=== PATIENT | female | born 1980 | race Caucasian/White ===

== ENCOUNTER → 2019-02-16 14:47 | Outpatient (CLI) | payer BC | END | disposition home or self-care (01) | LOC: D.US 02-12 15:30 | PROVIDERS: ATTEND Nurse Practitioner Family | DX: E04.1 Nontoxic single thyroid nodule (principal) ==

== ENCOUNTER → 2020-07-10 12:51 | Outpatient (CLI) | payer BC ==
--- NOTE | ~2020-07-10 | EC ---
PATIENT:TONIA MOSER DATE OF SERVICE: 07/10/20 SEX: F MEDICAL RECORD: [id number] DATE OF : [birth year] LOCATION:D[facility] AGE OF PATIENT: 39 ADMISSION DATE: 07/10/20 REFERRING PHYSICIAN: INTERPRETING PHYSICIAN: VALERIE DUVALL MD ECHOCARDIOGRAM REPORT ECHO CHARGES 4 ECHO COMPLETE Date: 07/10/20 CLINICAL DIAGNOSIS: ORTHO HYPOTENSION/ SURGERY CLEARENCE ASSESS EF ECHOCARDIOGRAPHIC MEASUREMENTS (adult normal given) AC root (d.<3.7cm) 2.7 cm LV Septum d (<1.2 cm> 1.1 cm Valve Excursion 1.4 cm LV Septum (systole) 1.3 cm Left Atria (s.<4.0cm> 3.2 cm LVPW d(<1.2cm) 1.2 cm RV (d.<2.3cm) 3.1 cm LVPW (sytole) 1.4 cm LV diastole(<5.6CM) 4.1 cm MV E-F(>70mm/sec) cm LV systole 2.7 cm LVOT Diameter 1.5 cm MV exc.(>10mm) 1.4 cm Est.ejection fraction (50-75%) % DOPPLER: LVIT cm/sec A 61.0 cm/sec E 81.0 cm/sec LA cm/sec RVSP 19 mmHg LVOT 107 cm/sec AOP1/2T m/s Asc. Ao 131 cm/sec RVOT 70 cm/sec RA cm/sec PA 109 cm/sec AV Gradient Peak 6.83 mmHg AV Mean 3.83 mmHg AV Area 1.5 cm MV Gradient Peak 3.15 mmHg MV Mean 1.25 mmHg MV Area cm COMMENTS: Toy Designer: 2 LEELEE BROTHERS Cyber Systems Administrator: 3 Dr. Condon TAPE# PACS Pericardial Effusion N DATE OF SERVICE: Adequate 2D, color flow imaging, spectral Doppler, and M-Mode. No LVH. LV internal dimension is normal. Wall motion is normal. EF is greater than or equal to 55%. Aortic valve is tricuspid. No evidence of stenosis by Doppler interrogation. Left atrium is normal. Mitral valve shows no prolapse. Physiologic MR. Right-sided chamber is grossly normal. Physiologic TR. TRANSINT:[id number] Voice Confirmation ID: [id number] DOCUMENT ID: [id number] ECHOCARDIOGRAM REPORT [id number] TONIA MOSER GREGORY A MD CC: [id number] DICTATION DATE: 07/11/20 1615 SUPERVISOR TRAIN OPERATIONS: 07/11/202104 DEP CLI 07/10/20 [place] [id number]
== END | disposition home or self-care (01) ==
LOC: D.HCCECHO 12:51
PROVIDERS: ATTEND Internal Medicine Interventional Cardiology
DX: I95.1 Orthostatic hypotension (principal)